=== PATIENT | male | born 1990 | race Caucasian/White ===

== ENCOUNTER 2023-05-13 17:48 | Emergency (ER) | payer OTHER ==
[2023-05-13 18:05] VITALS: BP 102/72; PULSE 70; RESP 16; TEMP 98.3; BMI 25.5
[2023-05-13] MEDS ORDERED: ACETAMINOPHEN 500 MG TABLET (FP) PO ONE (20:14)
[2023-05-13] MEDS ORDERED: IBUPROFEN 600 MG TABLET (FP) PO ONE ×2 (20:14→20:22)
[2023-05-13] MEDS ORDERED: LIDOCAINE 5% TOPICAL PATCH TP ONE (20:14)
[2023-05-13] MEDS ORDERED: ACETAMINOPHEN 500 MG TABLET (FP) ONE (20:22)
[2023-05-13] MEDS ORDERED: LIDOCAINE PATCH REMOVAL MC SCH (22:00)
== END 2023-05-13 20:32 | disposition home or self-care (01) ==
LOC: JERFT 17:48
DX: M54.50 Low back pain, unspecified (principal); M25.552 Pain in left hip; V89.2XXD Person injured in unspecified motor-vehicle accident, traffic, subsequent encounter; Y93.I9 Activity, other involving external motion; Y92.523 Highway rest stop as the place of occurrence of the external cause
CPT/HCPCS: 72100-TC-FY; 73502-TC-LT-FY; 99284-25